=== PATIENT | male | born 1965 | race Caucasian/White ===

== ENCOUNTER → 2020-07-30 | Outpatient (CLI) | payer OTHER, SELFPAY ==
[2020-07-30 15:51] LABS: PLATELET COUNT 323 x10^3mcL (152-348); RED CELL DISTRIBUTION WIDTH 13.5 % (12.1-16.2)
[2020-07-30 16:38] LABS: rbc morphology (normal/abnorm) NORMAL (NORMAL)
[2020-07-30 16:48] LABS: CALCIUM 8.6 mg/dL (8.5-10.1); CARBON DIOXIDE 26.6 mmol/L (21-32); CHLORIDE SERUM 103 mmol/L (98-107); CREATININE SERUM 0.9 mg/dL (0.7-1.3); GFR1 > 60 mL/min; GLUCOSE SERUM 103 mg/dL (74-106); POTASSIUM SERUM 3.8 mmol/L (3.5-5.1); SODIUM SERUM 138 mmol/L (136-145)
--- NOTE | 2020-07-30 18:00 | NUR ---
UPDATED THAT PT'S INSURANCE IS NOT CONTRACTED WITH [facility]. PROCEDURE CANCELLED. DR ROQUE NOTIFIED. PT CALLED AND MADE AWARE.
== END | disposition home or self-care (01) ==
LOC: LB 14:55 → EDSTATUS 07-31 07:30 → OR 07-31 07:30
PROVIDERS: ATTEND Internal Medicine Geriatric Medicine
DX: R07.9 Chest pain, unspecified (principal)